=== PATIENT | female | born 1985 | race Caucasian/White ===

== ENCOUNTER 2017-07-28 20:16 | Emergency (ER) | payer OTHER ==
[2017-07-28] MEDS: ONDANSETRON (ODT) 4 MG TAB ODT (21:55)
== END 2017-07-28 23:11 | disposition home or self-care (01) ==
LOC: FTE 20:16
DX: R11.2 Nausea with vomiting, unspecified (principal); E11.9 Type 2 diabetes mellitus without complications
CPT/HCPCS: 82962; 99284